=== PATIENT | female | born 1940 | race Two or more races ===

== ENCOUNTER 2021-10-20 05:50 | Day surgery (SDC) | payer OTHER ==
[~2021-10-20 05:50] MED LIST: ANASTIA15 GM PO; ATACAND16 MG PO; ATORVASTATIN CA10 MG PO; CALTRATE 600+D1 EAC1 PO; DILTIAZEM ER120 M2 PO; FISH OIL 1,0001 EAC3 PO; GABA PO; VITAMIN C PO
== END 2021-10-20 16:20 | disposition home or self-care (01) ==
LOC: CIR.AMB 05:50
PROVIDERS: ATTEND Surgery
DX: C50.411 Malignant neoplasm of upper-outer quadrant of right female breast (principal); Z17.0 Estrogen receptor positive status [ER+]; R59.0 Localized enlarged lymph nodes; I10 Essential (primary) hypertension; J45.909 Unspecified asthma, uncomplicated; N39.498 Other specified urinary incontinence; Z20.822 Contact with and (suspected) exposure to COVID-19